=== PATIENT | female | born 1955 | race Caucasian/White ===

== ENCOUNTER 2018-12-27 09:37 | Day surgery (SDC) | payer MEDICARE, BC ==
[~2018-12-27] VITALS: Ht 167.6 cm; Wt 102.7 kg
[~2018-12-27 09:37] MED LIST: ASPI325; DIPH50; ESTROGEN-METHY1 EAC1; FISH1000; Flonase 0.05% N16 GM; Garlic1 EACH; Homocysteine F1 EACH; LISI5 PO; Multi-Day Vita1 EACH; OMEP20ER
== END 2018-12-27 12:05 | disposition home or self-care (01) ==
LOC: ORSCSDS 09:37
PROVIDERS: Internal Medicine Gastroenterology
PROC: 0DB68ZX Excision of Stomach, Via Natural or Artificial Opening Endoscopic, Diagnostic (ICD-10-PCS; principal; 2018-12-27 11:00)
PROC: 0DBM8ZX Excision of Descending Colon, Via Natural or Artificial Opening Endoscopic, Diagnostic (ICD-10-PCS; principal; 2018-12-27 11:00)
PROC: 0DB58ZX Excision of Esophagus, Via Natural or Artificial Opening Endoscopic, Diagnostic (ICD-10-PCS; principal; 2018-12-27 11:00)
PROC: 0DB98ZX Excision of Duodenum, Via Natural or Artificial Opening Endoscopic, Diagnostic (ICD-10-PCS; principal; 2018-12-27 11:00)
PROC: 0DBK8ZX Excision of Ascending Colon, Via Natural or Artificial Opening Endoscopic, Diagnostic (ICD-10-PCS; principal; 2018-12-27 11:00)
DX: D50.9 Iron deficiency anemia, unspecified (principal); D12.2 Benign neoplasm of ascending colon; D12.4 Benign neoplasm of descending colon; K44.9 Diaphragmatic hernia without obstruction or gangrene; K57.30 Diverticulosis of large intestine without perforation or abscess without bleeding; K64.1 Second degree hemorrhoids; K21.9 Gastro-esophageal reflux disease without esophagitis; G47.33 Obstructive sleep apnea (adult) (pediatric); E72.11 Homocystinuria; E66.01 Morbid (severe) obesity due to excess calories; Z68.37 Body mass index [BMI] 37.0-37.9, adult
CPT/HCPCS: 88305; 88342; J2704; J7120

== ENCOUNTER → 2022-09-24 | Outpatient (CLI) | payer MEDICARE, BC | LOC: LAB 10:30 → LAB SHORT 10:30 | DX: J02.9 Acute pharyngitis, unspecified (principal) | CPT/HCPCS: 87081 ==

== ENCOUNTER 2023-01-17 12:00 | Day surgery (SDC) | payer MEDICARE, BC ==
[~2023-01-17] VITALS: Ht 167.6 cm; Wt 123.8 kg
[2023-01-17] MEDS ORDERED: VITAMIN D310 MC4 (12:16)
[2023-01-17] MEDS ORDERED: OMEGA-3 + VITA200 ML (12:16)
[2023-01-17] MEDS ORDERED: MELA3 (12:16)
[2023-01-17] MEDS ORDERED: CLIMARA1 EACH (12:16)
[2023-01-17] MEDS ORDERED: CORTISOL (12:18)
[2023-01-17] MEDS ORDERED: Vitamin C100 M1 (12:19)
[2023-01-17 14:12] VITALS: BP 127/82
== END 2023-01-17 14:16 | disposition home or self-care (01) ==
LOC: ORSCSDS 12:00
PROVIDERS: Internal Medicine Gastroenterology
PROC: 0DBH8ZX Excision of Cecum, Via Natural or Artificial Opening Endoscopic, Diagnostic (ICD-10-PCS; principal; 2023-01-17 13:15)
PROC: 0DBK8ZX Excision of Ascending Colon, Via Natural or Artificial Opening Endoscopic, Diagnostic (ICD-10-PCS; principal; 2023-01-17 13:15)
PROC: 0DBM8ZX Excision of Descending Colon, Via Natural or Artificial Opening Endoscopic, Diagnostic (ICD-10-PCS; principal; 2023-01-17 13:15)
DX: K59.09 Other constipation (principal); Z86.010 Personal history of colon polyps; R14.0 Abdominal distension (gaseous); D12.2 Benign neoplasm of ascending colon; D12.4 Benign neoplasm of descending colon; K63.5 Polyp of colon; G47.33 Obstructive sleep apnea (adult) (pediatric); K21.9 Gastro-esophageal reflux disease without esophagitis; E66.01 Morbid (severe) obesity due to excess calories; D50.9 Iron deficiency anemia, unspecified; Z68.41 Body mass index [BMI] 40.0-44.9, adult; K44.9 Diaphragmatic hernia without obstruction or gangrene; Z79.899 Other long term (current) drug therapy
CPT/HCPCS: 88305; J2250; J2704; J7120